=== PATIENT | male | born 1965 | race Caucasian/White ===

== ENCOUNTER 2017-01-29 11:31 | Day surgery (SDC) | payer OTHER ==
[~2017-01-29] VITALS: Ht 177.8 cm; Wt 77.9 kg
[2017-01-29 12:38] VITALS: Ht 177.8 cm; Wt 77.9 kg
[2017-01-29 13:29] VITALS: BP 135/59; PULSE 61; RESP 16
[2017-01-29] MEDS ORDERED: PROPOFOL 40 ML ONE (13:30)
[2017-01-29] MEDS ORDERED: MIDAZOLAM 1 MG/ML 2 ML INJ ONE (13:30)
[2017-01-29] MEDS ORDERED: FENTAnyl 50 MCG/ML VIAL ONE (13:30)
[2017-01-29] MEDS ORDERED: LIDOCAINE 2% (SDV) 5 ML INJ ONE (13:30)
--- NOTE | 2017-01-29 14:01 | OPPN ---
Date/Time of Note Date/Time of Note DATE: 01/29/17 TIME: 13:56 Operative Report Preoperative Diagnosis screening Postoperative Diagnosis colon polyps Operation/Procedure Performed colonoscopy and biopsy Surgeon see signature line assistant center director none Anesthesia: MAC Estimated blood loss: none Transfusion Required none Specimen colon polyps Grafts/Implants none Complications none CARMELITA GABRIEL MD Jan 29, 2017 14:01
[2017-01-29 14:23] VITALS: BP 123/76; PULSE 56; RESP 24
--- NOTE | 2017-01-29 17:34 | GILP ---
DATE OF PROCEDURE: NAME OF PROCEDURES: Colonoscopy and biopsy. SURGEON: Carmelita Mcghee MD. PREOPERATIVE DIAGNOSIS: Screening colonoscopy. POSTOPERATIVE DIAGNOSES: 1. Colonoscopy all the way to the cecum. 2. Two polyps, one from the cecum and another one from the right colon were removed using the biops y forceps. 3. Internal hemorrhoids. INDICATION FOR THE PROCEDURE: Mr. Bautista Arthur is a 51-year-old male patient who was scheduled for screening colonoscopy. The procedure and possible complications were well explained to the patient. The patient understood and consented to the procedure. DESCRIPTION OF PROCEDURE: Under the influence of anesthesia, the colonoscope was carefully introduc ed in the rectum and under direct vision, it was advanced all the way to the cecum. FINDINGS: The patient had a polyp in the cecum and a flat polyp in the right colon and they were re moved using the biopsy forceps. He was noted to have internal hemorrhoids. He tolerated the procedure very well and there was no complication from the procedure. At the end o f the procedure, he was awake with stable vital signs and he was discharged home to the care of his family. IMPRESSION: Please see postoperative diagnoses. PLAN: 1. Await histopathology report. 2. Next screening colonoscopy in 5 years. Dictated By: CARMELITA QURESHI/RICKI Conf#: [id number] DID#: [id number]
== END 2017-01-29 15:51 | disposition home or self-care (01) ==
LOC: GIL 11:31
PROVIDERS: ATTEND Internal Medicine Gastroenterology
DX: Z12.11 Encounter for screening for malignant neoplasm of colon (principal); D12.0 Benign neoplasm of cecum; K64.8 Other hemorrhoids
CPT/HCPCS: 45380; 88305; J2250; J3010